=== PATIENT | male | born 1985 | race Caucasian/White ===

== ENCOUNTER 2020-03-19 22:12 | Emergency (ER) | payer OTHER ==
--- NOTE | 2020-03-19 22:38 | EDM.PDOC ---
ED HPI GENERAL MEDICAL PROBLEM - General Chief Complaint: Gastrointestinal Problem Stated Complaint: RECTAL BLEEDING Time Seen by Provider: 03/19/20 22:16 Source of Information: Reports: Patient History Limitations: Reports: No Limitations - History of Present Illness INITIAL COMMENTS - FREE TEXT/NARRATIVE: History of present illness: [Patient is 34-year-old male with a history of hemorrhoids who presents with anal pain, rectal bleeding, and suspected thrombosed hemorrhoid. He states that he has been traveling throughout the day today and he has had recurrent bleeding from this hemorrhoid. He states his hemorrhoids in the past have been internal, this ones protruding out. He tried using Preparation H on it earlier this morning. Otherwise has not tried any medications interventions. Denies any abdominal pain, vomiting, diarrhea, black or tarry stool.] Review of systems: As per history of present illness and below otherwise all systems reviewed and negative. Past medical history: As per history of present illness and as reviewed below otherwise noncontributory. Surgical history: As per history of present illness and as reviewed below otherwise noncontri butory. Social history: No reported history of drug or alcohol abuse. Family history: As per history of present illness and as reviewed below otherwise noncontributory. Physical exam: General: Awake, alert, no acute distress, A&O X3. HEENT: Atraumatic, normocephalic, pupils reactive, negative for conjunctival pallor or scleral icterus, mucous membranes moist, throat clear, neck supple, nontender, trachea midline. Lungs: Clear to auscultation, breath sounds equal bilaterally, chest nontender. Heart: RRR, normal S1S2, no JVD. Abdomen: Soft, nondistended, nontender. Negative for masses or h epatosplenomegaly. Negative for costovertebral tenderness. Pelvis: Stable nontender. Genitourinary: Deferred. Rectal: Single flesh-colored hemorrhoid at the anal verge. Measuring about 2 x 1 cm in size. No active bleeding, however a 1 x 1 cm clot appears to be extruding from this hemorrhoid. Extremities: Atraumatic, no edema, Neurovascular unremarkable. Neuro: Motor and sensory grossly intact throughout. Exam nonfocal. Diagnostics: [] Therapeutics: [] Impression: [] Plan: [] Definitive disposition and diagnosis as appropriate pending reevaluation and review of above. rectal area Pain Score (Numeric/FACES): 3 - Related Data Allergies Allergy/AdvReac Type Severity Reaction Status Date / Time amoxicillin Allergy Rash Verified 03/19/20 22:28 iodine Allergy Rash Verified 03/19/20 23:15 Penicillins Allergy Rash Verified 03/19/20 22:28 Home Meds: Home Meds . [No Known Home Meds] 03/19/20 [History] Past Medical History HEENT History: Reports: None Cardiovascular History: Reports: None Respiratory History: Reports: None Gastrointestinal History: Reports: None Genitourinary History: Reports: None Musculoskeletal History: Reports: None Neurological History: Reports: None Psychiatric History: Reports: None Endocrine/Metabolic History: Reports: None Insulin Pump Model and Inspector Insulation: None Hematologic History: Reports: None Immunologic History: Reports: None Oncologic (Cancer) History: Reports: None Dermatologic History: Reports: None - Infectious Disease History Infectious Disease History: Reports: None - Past Surgical History Head Surgeries/Procedures: Reports: None Male Surgical History: Reports: None Social & Family History - Family History Family Medical History: Noncontributory - Tobacco Use Smoking Status *Q: Never Smoker Second Hand Smoke Exposure: No - Caffeine Use Caffeine Use: Reports: None - Recreational Drug Use Recreational Drug Use: No ED ROS GENERAL - Review of Systems Review Of Systems: Comprehensive ROS is negative, except as noted in HPI. ED EXAM, RENAL/ - Physical Exam Exam: See Below (see h and p) ED PROCEDURES - Additional/Other Procedure(s) Procedure(s) (Free Text): removal/banding of thrombosed external hemorrhoid. Area was cleansed with Betadine. Following which the external hemorrhoid, which measured about 2 x 1 cm, was injected with 1% lidocaine with no epinephrine, total 4 mL's. Following which the I excised a small clot from the thrombosed hemorrhoid and using 3.0 Vicryl suture I effectively banded the hemorrhoid. Bleeding controlled, minimal blood loss, patient tolerated the procedure well. Course - Vital Signs Text/Narrative:: Patient tolerated the procedure well. Last Recorded V/S: Last Vital Signs Temp 36.2 C 03/19/20 23:32 Pulse 54 L 03/19/20 23:32 Resp 16 03/19/20 23:32 BP 122/63 03/19/20 23:32 Pulse Ox 97 03/19/20 23:32 - Orders/Labs/Meds Meds: Medications Discontinued Medications Generic Name Dose Route Start Last Admin Trade Name Ken PRN Reason Stop Dose Admin Hydrocortisone 0 gm 03/19/20 22:54 03/19/20 23:11 Proctozone-Hc 2.5% Crm TOP 03/19/20 22:55 1 applic NOW STA Administration Lidocaine HCl 5 ml 03/19/20 22:35 03/19/20 22:42 Xylocaine-Mpf 1% INJECT 03/19/20 22:36 5 ml ONETIME ONE Administration Lidocaine HCl Confirm 03/19/20 22:36 03/19/20 22:43 Xylocaine-Mpf 1% Administered 03/19/20 22:37 Not Given Dose 5 ml .ROUTE .STK-MED ONE Departure - Departure Time of Disposition: 23:40 Disposition: Home, Self-Care 01 Condition: Good Clinical Impression: Hemorrhoids - Discharge Information Instructions: Rectal Bleeding, Hemorrhoids, [id number] Ref[facility]Outside[facility] - Forms: ED Department Discharge Additional Instructions: The following information is given to patients seen in the emergency department who are being discharged to home. This information is to outline your options for follow-up care. We provide all patients seen in our emergency department with a follow-up referral. The need for follow-up, as well as the timing and circumstances, are variable depending upon the specifics of your emergency department visit. If you don't have a primary care physician on staff, we will provide you with a referral. We always advise you to contact your personal physician following an emergency department visit to inform them of the circumstance of the visit and for follow-up with them and/or the need for any referrals to a consulting specialist. The emergency department will also refer you to a specialist when appropriate. This referral assures that you have the opportunity for follow-up care with a specialist. All of these measure are taken in an effort to provide you with optimal care, which includes your follow-up. Under all circumstances we always encourage you to contact your private physician who remains a resource for coordinating your care. When calling for follow-up care, please make the office aware that this follow-up is from your recent emergency room visit. If for any reason you are refused follow-up, please contact the [facility] at and asked to speak to the emergency department charge nurse. Sepsis Event Note (ED) - Evaluation Sepsis Screening Result: No Definite Risk - Focused Exam Vital Signs: Vital Signs Temp Pulse Resp BP Pulse Ox 03/19/20 23:32 36.2 C 54 L 16 122/63 97 03/19/20 22:28 36.1 C 90 18 135/81 97
[2020-03-19] MEDS ORDERED: Hydrocortisone 2.5% Crm 30 GM Tube TOP STA (22:54)
== END 2020-03-19 23:32 | disposition home or self-care (01) ==
LOC: MW.ED 22:12
DX: K64.5 Perianal venous thrombosis (principal); Z88.1 Allergy status to other antibiotic agents; Z88.0 Allergy status to penicillin; Z91.048 Other nonmedicinal substance allergy status
CPT/HCPCS: 46320; 99282; J2001